=== PATIENT | male | born 1995 | race Two or more races ===

== ENCOUNTER 2018-11-14 21:25 | Emergency (ER) | payer SELFPAY ==
[~2018-11-14] VITALS: Ht 175.3 cm; Wt 95.5 kg
[2018-11-14 21:35] VITALS: BP 133/96
== END 2018-11-15 | disposition left against medical advice (07) ==
LOC: EMS 21:26
DX: R06.02 Shortness of breath (principal); Z53.21 Procedure and treatment not carried out due to patient leaving prior to being seen by health care provider

== ENCOUNTER 2019-02-24 02:38 | Emergency (ER) | payer MEDICAID ==
[~2019-02-24] VITALS: Ht 177.8 cm; Wt 109.1 kg
[2019-02-24 06:28] LABS: BASOPHILS % (AUTO) 0.5 % (0.0-2.0); EOSINOPHILS % (AUTO) 0.9 % (1.0-6.0); HEMATOCRIT 38.9 % (41-53); HEMOGLOBIN 12.2 g/dL (13.5-17.5); LYMPHOCYTES % (AUTO) 17.1 % (22.0-44.0); MEAN CORPUSCULAR HEMOGLOBIN 19.3 pg (26.0-34.0); MEAN CORPUSCULAR HGB CONC 31.4 G/dL (31.0-37.0); MEAN CORPUSCULAR VOLUME 61 fL (80-100); MONOCYTES # (AUTO) 0.9 K/uL (0.1-1.0); NEUTROPHILS # (AUTO) 8.5 K/uL (1.8-7.7); NEUTROPHILS % (AUTO) 73.5 % (40.0-70.0); PLATELET COUNT (AUTO) 216 K/uL (150-450); RED BLOOD CELL COUNT(AUTO) 6.33 MIL/uL (4.50-5.90); RED CELL DISTRIBUTION WIDTH 16.5 % (11.5-14.5)
[2019-02-24 06:46] LABS: ANION GAP 10 mmol/L (8-16); CALCIUM, TOTAL 8.7 mg/dL (8.8-10.5); CARBON DIOXIDE 25 mmol/L (22-29); CHLORIDE 105 mmol/L (98-107); GLOMERULAR FILTR. RATE CALC > 60 mL/min (>60); GLUCOSE,RANDOM 105 mg/dL (70-110); POTASSIUM 4.1 mmol/L (3.5-5.1); SODIUM SERUM 140 mmol/L (136-145); UREA NITROGEN, BLOOD 17 mg/dL (7-18)
[2019-02-24 06:51] LABS: ALANINE AMINOTRANSFERASE 36 U/L (12-78); ALBUMIN 3.6 g/dL (3.4-5.0); ALKALINE PHOSPHATASE 63 U/L (46-116); ASPARTATE AMINOTRANSFERASE 16 U/L (15-37); BILIRUBIN,TOTAL 1.1 mg/dL (0.1-1.0); TOTAL PROTEIN, SERUM 7.5 g/dL (6.4-8.2)
[2019-02-24 07:15] LABS: AMPHET/METH SCREEN,URINE NEGATIVE (NEGATIVE); BARBITURATE SCREEN, URINE NEGATIVE (NEGATIVE); BENZODIAZEPINES SCREEN,URINE NEGATIVE (NEGATIVE); CANNABINOID SCREEN,URINE NEGATIVE (NEGATIVE); COCAINE SCREEN,URINE NEGATIVE (NEGATIVE); METHADONE SCREEN, URINE NEGATIVE (NEGATIVE); OPIATE SCREEN,URINE NEGATIVE (NEGATIVE)
[2019-02-24 07:16] LABS: PHENCYCLIDINE SCREEN,URINE NEGATIVE (NEGATIVE)
[2019-02-24] MEDS ORDERED: OLANZapine 5 MG TABLET PO ONE (08:45)
[2019-02-24 09:41] VITALS: BP 126/76
== END 2019-02-24 10:50 | disposition home or self-care (01) ==
LOC: EMS 02:40
DX: F20.0 Paranoid schizophrenia (principal)
CPT/HCPCS: 36415; 80053; 80307; 85025; 99284; G0480

== ENCOUNTER 2019-03-03 20:55 | Emergency (ER) | payer SELFPAY ==
[~2019-03-03] VITALS: Ht 177.8 cm; Wt 109.1 kg
[2019-03-03] MEDS ORDERED: OLAN10TA3 PO (21:04)
[2019-03-03 22:46] LABS: BASOPHILS % (AUTO) 0.7 % (0.0-2.0); EOSINOPHILS % (AUTO) 0.7 % (1.0-6.0); HEMATOCRIT 40.5 % (41-53); HEMOGLOBIN 12.9 g/dL (13.5-17.5); LYMPHOCYTES # (AUTO) 3.2 K/uL (1.0-4.8); LYMPHOCYTES % (AUTO) 28.2 % (22.0-44.0); MEAN CORPUSCULAR HEMOGLOBIN 19.4 pg (26.0-34.0); MEAN CORPUSCULAR HGB CONC 31.8 G/dL (31.0-37.0); MEAN CORPUSCULAR VOLUME 61 fL (80-100); MONOCYTES # (AUTO) 0.9 K/uL (0.1-1.0); MONOCYTES % (AUTO) 8.1 % (2.0-9.0); NEUTROPHILS % (AUTO) 62.3 % (40.0-70.0); PLATELET COUNT (AUTO) 288 K/uL (150-450); RED BLOOD CELL COUNT(AUTO) 6.65 MIL/uL (4.50-5.90); RED CELL DISTRIBUTION WIDTH 17.3 % (11.5-14.5)
[2019-03-03 22:55] LABS: ANION GAP 6 mmol/L (8-16); CALCIUM, TOTAL 9.5 mg/dL (8.8-10.5); CARBON DIOXIDE 29 mmol/L (22-29); CHLORIDE 104 mmol/L (98-107); CREATININE 0.85 mg/dL (0.60-1.30); GLOMERULAR FILTR. RATE CALC > 60 mL/min (>60); GLUCOSE,RANDOM 92 mg/dL (70-110); POTASSIUM 4.2 mmol/L (3.5-5.1); SODIUM SERUM 139 mmol/L (136-145); UREA NITROGEN, BLOOD 13 mg/dL (7-18)
[2019-03-03 23:01] LABS: ALANINE AMINOTRANSFERASE 60 U/L (12-78); ALBUMIN 3.8 g/dL (3.4-5.0); ALKALINE PHOSPHATASE 82 U/L (46-116); ASPARTATE AMINOTRANSFERASE 25 U/L (15-37); BILIRUBIN,TOTAL 0.7 mg/dL (0.1-1.0); TOTAL PROTEIN, SERUM 8.3 g/dL (6.4-8.2)
[2019-03-03 23:37] LABS: BARBITURATE SCREEN, URINE NEGATIVE (NEGATIVE); BENZODIAZEPINES SCREEN,URINE NEGATIVE (NEGATIVE); CANNABINOID SCREEN,URINE NEGATIVE (NEGATIVE); COCAINE SCREEN,URINE NEGATIVE (NEGATIVE); METHADONE SCREEN, URINE NEGATIVE (NEGATIVE); OPIATE SCREEN,URINE NEGATIVE (NEGATIVE)
[2019-03-03 23:48] LABS: AMPHET/METH SCREEN,URINE NEGATIVE (NEGATIVE)
[2019-03-03 23:49] LABS: PHENCYCLIDINE SCREEN,URINE NEGATIVE (NEGATIVE)
[2019-03-04] MEDS ORDERED: MAALOX/LIDOCAINE/NYSTATIN SUSP 5 ML ORAL.SYG PO ONE (02:15)
[2019-03-04] MEDS ORDERED: QUEtiapine FUMARATE 25 MG TABLET PO ONE (02:15)
[2019-03-04 04:06] VITALS: BP 121/82
== END 2019-03-04 05:15 | disposition home or self-care (01) ==
LOC: EMS 20:57
DX: R44.0 Auditory hallucinations (principal); R44.1 Visual hallucinations; J02.9 Acute pharyngitis, unspecified; F32.9 Major depressive disorder, single episode, unspecified
CPT/HCPCS: 36415; 80053; 80307; 85025; 99284; G0480

== ENCOUNTER 2019-03-07 21:02 | Emergency (ER) | payer SELFPAY ==
[~2019-03-07] VITALS: Ht 177.8 cm; Wt 109.1 kg
[~2019-03-07 21:02] MED LIST: OLAN10TA3 PO
[2019-03-07] MEDS ORDERED: QUET25TA PO (21:17)
[2019-03-07] MEDS ORDERED: LORazepam 2 MG TABLET PO ONE (21:30)
[2019-03-07 23:45] VITALS: BP 110/72
== END 2019-03-07 23:57 | disposition home or self-care (01) ==
LOC: EMS 21:04
DX: F41.9 Anxiety disorder, unspecified (principal); F32.9 Major depressive disorder, single episode, unspecified; F20.9 Schizophrenia, unspecified

== ENCOUNTER 2019-03-27 18:07 | Inpatient (IN) | payer MEDICAID ==
[~2019-03-27] VITALS: Ht 177.8 cm; Wt 112.5 kg
[~2019-03-27 18:07] MED LIST changes: +QUET25TA PO
[2019-03-27] MEDS ORDERED: HALOPERIDOL 5 MG TABLET PO PRN (19:15)
[2019-03-27] MEDS ORDERED: ZOLPIDEM TARTRATE 10 MG TABLET PO PRN (19:15)
[2019-03-27 20:05] VITALS: BP 125/81
[2019-03-27] MEDS ORDERED: OLANZapine 10 MG TABLET PO SCH (21:00)
[2019-03-27] MEDS: LORazepam 2 MG TABLET PO PRN (21:02)
[2019-03-28 06:17] VITALS: BP 110/72
[2019-03-28 08:00] LABS: BASOPHILS % (AUTO) 0.7 % (0.0-2.0); EOSINOPHILS % (AUTO) 2.4 % (1.0-6.0); HEMATOCRIT 39.4 % (41-53); HEMOGLOBIN 12.4 g/dL (13.5-17.5); LYMPHOCYTES # (AUTO) 1.9 K/uL (1.0-4.8); LYMPHOCYTES % (AUTO) 29.6 % (22.0-44.0); MEAN CORPUSCULAR HEMOGLOBIN 19.4 pg (26.0-34.0); MEAN CORPUSCULAR HGB CONC 31.5 G/dL (31.0-37.0); MEAN CORPUSCULAR VOLUME 62 fL (80-100); MONOCYTES # (AUTO) 0.6 K/uL (0.1-1.0); MONOCYTES % (AUTO) 9.8 % (2.0-9.0); NEUTROPHILS # (AUTO) 3.7 K/uL (1.8-7.7); NEUTROPHILS % (AUTO) 57.5 % (40.0-70.0); PLATELET COUNT (AUTO) 233 K/uL (150-450); RED BLOOD CELL COUNT(AUTO) 6.39 MIL/uL (4.50-5.90); RED CELL DISTRIBUTION WIDTH 18.3 % (11.5-14.5)
[2019-03-28 08:26] VITALS: BP 115/65
[2019-03-28 08:42] LABS: ALANINE AMINOTRANSFERASE 52 U/L (12-78); ALKALINE PHOSPHATASE 73 U/L (46-116); ANION GAP 8 mmol/L (8-16); ASPARTATE AMINOTRANSFERASE 33 U/L (15-37); BILIRUBIN,TOTAL 0.9 mg/dL (0.1-1.0); CARBON DIOXIDE 26 mmol/L (22-29); CHLORIDE 108 mmol/L (98-107); CHOL/HDL RATIO 5.2 (4.2-7.3); CHOLESTEROL 136 mg/dL (131-200); CREATININE 0.85 mg/dL (0.60-1.30); FREE T4 (FREE THYROXINE) 1.19 ng/dL (0.76-1.46); GLOMERULAR FILTR. RATE CALC > 60 mL/min (>60); GLUCOSE,RANDOM 90 mg/dL (70-110); HDL CHOLESTEROL 26 mg/dL (40-60); LDL CHOL (CALC.) 95 mg/dL (0-130); POTASSIUM 4.4 mmol/L (3.5-5.1); SODIUM SERUM 142 mmol/L (136-145); THYROID STIMULATING HORMONE 1.71 uIU/mL (0.36-3.74); TOTAL PROTEIN, SERUM 6.9 g/dL (6.4-8.2); TRIGLYCERIDES 73 mg/dL (15-150); UREA NITROGEN, BLOOD 15 mg/dL (7-18)
[2019-03-28 16:07] VITALS: BP 120/60
[2019-03-28] MEDS ORDERED: BISACODYL 5 MG EC TABLET PO PRN (18:00)
[2019-03-28] MEDS: QUEtiapine FUMARATE 300 MG ER TABLET PO SCH (20:32)
[2019-03-28] MEDS: LORazepam 2 MG TABLET PO PRN (21:22)
[2019-03-29 06:04] VITALS: BP 112/62
[2019-03-29 08:08] VITALS: BP 116/64
[2019-03-29 16:14] VITALS: BP 116/81
[2019-03-29] MEDS: LORazepam 2 MG TABLET PO PRN (19:19)
[2019-03-29] MEDS: QUEtiapine FUMARATE 300 MG ER TABLET PO SCH (20:38)
[2019-03-30 06:17] VITALS: BP 111/60
[2019-03-30 08:06] VITALS: BP 114/67
[2019-03-30 16:00] VITALS: BP 120/60
[2019-03-30] MEDS: LORazepam 2 MG TABLET PO PRN (19:48)
[2019-03-30] MEDS: QUEtiapine FUMARATE 300 MG ER TABLET PO SCH (20:08)
[2019-03-30 23:58] VITALS: BP 100/63
[2019-03-31 00:34] VITALS: BP 100/63
[2019-03-31 08:12] VITALS: BP 105/58
[2019-03-31 16:08] VITALS: BP 145/78
[2019-03-31] MEDS: QUEtiapine FUMARATE 300 MG ER TABLET PO SCH (20:11)
[2019-03-31] MEDS: LORazepam 2 MG TABLET PO PRN (20:12)
[2019-04-01 06:15] VITALS: BP 101/60
[2019-04-01 08:09] VITALS: BP 123/65
[2019-04-01 16:12] VITALS: BP 112/63
[2019-04-01] MEDS ORDERED: QUET300T5 PO (18:04)
[2019-04-01] MEDS: QUEtiapine FUMARATE 300 MG ER TABLET PO SCH (20:05)
[2019-04-01] MEDS: LORazepam 2 MG TABLET PO PRN (20:27)
[2019-04-02 01:30] VITALS: BP 100/68
== END 2019-04-02 07:10 | disposition home or self-care (01) | DRG 750 ==
LOC: B2S 19:16
PROVIDERS: ADMIT Psychiatry & Neurology Psychiatry; ATTEND Psychiatry & Neurology Psychiatry
DX: F25.0 Schizoaffective disorder, bipolar type (principal); R45.851 Suicidal ideations; F29 Unspecified psychosis not due to a substance or known physiological condition; R45.87 Impulsiveness; D64.9 Anemia, unspecified; F41.9 Anxiety disorder, unspecified; K59.00 Constipation, unspecified; Z59.0 Homelessness
CPT/HCPCS: 83036; 84439; 84443

== ENCOUNTER 2019-05-01 11:54 | Inpatient (IN) | payer MEDICAID ==
[~2019-05-01] VITALS: Ht 182.9 cm; Wt 118.3 kg
[2019-05-01 10:52] VITALS: BP 126/65
[2019-05-01 11:15] VITALS: BP 126/65
[~2019-05-01 11:54] MED LIST changes: +LORazepam 2 MG TABLET PO PRN; -OLAN10TA3 PO; +OLAN5TAB2 PO; +OLANZapine 5 MG RAPDIS TABLET PO PRN; -QUET25TA PO; +ZOLPIDEM TARTRATE 10 MG TABLET PO PRN
[2019-05-01] MEDS ORDERED: ZOLPIDEM TARTRATE 10 MG TABLET PO PRN (12:00)
[2019-05-01 12:39] VITALS: BP 126/68
[2019-05-01] MEDS ORDERED: POTASSIUM CHLORIDE 20 MEQ ER TABLET PO ONE (13:00)
[2019-05-01 16:00] VITALS: BP 126/66
[2019-05-01] MEDS: LORazepam 2 MG TABLET PO PRN (20:17)
[2019-05-01] MEDS: OLANZapine 5 MG RAPDIS TABLET PO PRN (20:18)
[2019-05-02 06:48] VITALS: BP 129/86
[2019-05-02 08:04] VITALS: BP 121/72
[2019-05-02 08:19] LABS: BASOPHILS % (AUTO) 0.8 % (0.0-2.0); EOSINOPHILS % (AUTO) 1.9 % (1.0-6.0); HEMATOCRIT 42.6 % (41-53); HEMOGLOBIN 13.3 g/dL (13.5-17.5); LYMPHOCYTES # (AUTO) 2.4 K/uL (1.0-4.8); LYMPHOCYTES % (AUTO) 39.4 % (22.0-44.0); MEAN CORPUSCULAR HEMOGLOBIN 19.9 pg (26.0-34.0); MEAN CORPUSCULAR HGB CONC 31.3 G/dL (31.0-37.0); MEAN CORPUSCULAR VOLUME 64 fL (80-100); MONOCYTES # (AUTO) 0.6 K/uL (0.1-1.0); MONOCYTES % (AUTO) 10.5 % (2.0-9.0); NEUTROPHILS # (AUTO) 2.9 K/uL (1.8-7.7); NEUTROPHILS % (AUTO) 47.4 % (40.0-70.0); PLATELET COUNT (AUTO) 203 K/uL (150-450); RED BLOOD CELL COUNT(AUTO) 6.69 MIL/uL (4.50-5.90); RED CELL DISTRIBUTION WIDTH 17.5 % (11.5-14.5)
[2019-05-02 08:51] LABS: ALANINE AMINOTRANSFERASE 45 U/L (12-78); ALBUMIN 3.5 g/dL (3.4-5.0); ALKALINE PHOSPHATASE 69 U/L (46-116); ANION GAP 10 mmol/L (8-16); ASPARTATE AMINOTRANSFERASE 20 U/L (15-37); BILIRUBIN,TOTAL 0.9 mg/dL (0.1-1.0); CALCIUM, TOTAL 8.6 mg/dL (8.8-10.5); CARBON DIOXIDE 25 mmol/L (22-29); CHLORIDE 106 mmol/L (98-107); CHOL/HDL RATIO 5.2 (4.2-7.3); CHOLESTEROL 146 mg/dL (131-200); CREATININE 0.81 mg/dL (0.60-1.30); GLOMERULAR FILTR. RATE CALC > 60 mL/min (>60); GLUCOSE,RANDOM 93 mg/dL (70-110); HDL CHOLESTEROL 28 mg/dL (40-60); LDL CHOL (CALC.) 90 mg/dL (0-130); POTASSIUM 4.5 mmol/L (3.5-5.1); SODIUM SERUM 141 mmol/L (136-145); TOTAL PROTEIN, SERUM 7.1 g/dL (6.4-8.2); TRIGLYCERIDES 139 mg/dL (15-150); UREA NITROGEN, BLOOD 15 mg/dL (7-18)
[2019-05-02] MEDS: OLANZapine 5 MG RAPDIS TABLET PO PRN (14:48)
[2019-05-02 16:47] VITALS: BP 110/60
[2019-05-02] MEDS: LORazepam 2 MG TABLET PO PRN (20:24)
[2019-05-02] MEDS: OLANZapine 10 MG TABLET PO SCH (20:24)
[2019-05-03 05:31] VITALS: BP 117/75
[2019-05-03 08:21] VITALS: BP 118/69
[2019-05-03 17:11] VITALS: BP 133/72
[2019-05-03] MEDS: LORazepam 2 MG TABLET PO PRN (18:49)
[2019-05-03] MEDS: OLANZapine 10 MG TABLET PO SCH (20:40)
[2019-05-04 08:53] VITALS: BP 140/65
[2019-05-04 16:00] VITALS: BP 120/75
[2019-05-04] MEDS ORDERED: OLAN10TA3 PO (16:06)
== END 2019-05-04 19:10 | disposition home or self-care (01) | DRG 750 ==
LOC: EDSTATUS 11:54
PROVIDERS: ADMIT Psychiatry & Neurology Psychiatry; ATTEND Psychiatry & Neurology Psychiatry
DX: F25.0 Schizoaffective disorder, bipolar type (principal); R45.851 Suicidal ideations; Z59.0 Homelessness; R45.87 Impulsiveness; F41.9 Anxiety disorder, unspecified; R41.843 Psychomotor deficit; K59.00 Constipation, unspecified; E87.6 Hypokalemia

== ENCOUNTER 2019-09-14 06:20 | Inpatient (IN) | payer MEDICAID ==
[~2019-09-14] VITALS: Ht 177.8 cm; Wt 105.7 kg
[2019-09-14] VITALS (9 sets, daily range): BP systolic 108–139; BP diastolic 60–82
[~2019-09-14 06:20] MED LIST changes: -LORazepam 2 MG TABLET PO PRN; +OLAN10TA3 PO; -OLAN5TAB2 PO; -OLANZapine 5 MG RAPDIS TABLET PO PRN; -ZOLPIDEM TARTRATE 10 MG TABLET PO PRN
[2019-09-14] MEDS ORDERED: OLAN10TA3 PO (09:34)
[2019-09-14] MEDS ORDERED: GuaiFENesin/D-METHORPHAN [SUGAR-FREE] 200-20MG/10 ML SYRUP UDCUP PO PRN (10:00)
[2019-09-14] MEDS ORDERED: LORazepam 2 MG TABLET PO PRN ×2 (10:00)
[2019-09-14] MEDS ORDERED: LOPERAMIDE HCL 2 MG CAPSULE PO PRN (10:00)
[2019-09-14] MEDS ORDERED: ZOLPIDEM TARTRATE 10 MG TABLET PO PRN (10:00)
[2019-09-14] MEDS ORDERED: HydrOXYzine PAMOATE 50 MG CAPSULE PO PRN (10:00)
[2019-09-14] MEDS ORDERED: CYANOCOBALAMIN 1,000 MCG/ML VIAL IM ONE (10:00)
[2019-09-14] MEDS ORDERED: OLANZapine 5 MG RAPDIS TABLET PO PRN (10:00)
[2019-09-14] MEDS: THIAMINE HCL 100 MG TABLET PO SCH ×2 (10:38→16:40)
[2019-09-14] MEDS ORDERED: INFLUENZA VIRUS VACCINE QVS 2019-20 (3YR+)/PF 60 MCG/0.5 ML SYRINGE IM ONE (11:00)
[2019-09-15 00:25] VITALS: BP 136/73
[2019-09-15 01:30] VITALS: BP 110/68
[2019-09-15 05:32] VITALS: BP 112/70
[2019-09-15] MEDS ORDERED: LORazepam 2 MG TABLET PO PRN (07:00)
[2019-09-15] MEDS ORDERED: ACETAMINOPHEN 325 MG TABLET PO PRN (08:00)
[2019-09-15] MEDS ORDERED: ONDANSETRON HCL 4 MG TABLET PO PRN (08:00)
[2019-09-15] MEDS ORDERED: PETROLATUM,WHITE 28 GM JELLY TP PRN (08:00)
[2019-09-15] MEDS ORDERED: MAG HYDROX/AL HYDROX/SIMETH ES 30 ML SUSPENSION UDCUP PO PRN (08:00)
[2019-09-15] MEDS ORDERED: ALBUTEROL SULFATE HFA 90 MCG/PUFF 8 GM INHALER IH PRN (08:00)
[2019-09-15] MEDS ORDERED: LOPERAMIDE HCL 2 MG CAPSULE PO PRN (08:00)
[2019-09-15] MEDS ORDERED: MAGNESIUM HYDROXIDE SUSPENSION 30 ML UDCUP PO PRN (08:00)
[2019-09-15] MEDS ORDERED: IBUPROFEN 600 MG TABLET PO PRN (08:00)
[2019-09-15] MEDS ORDERED: CloNIDine HCL 0.1 MG TABLET PO PRN (08:00)
[2019-09-15] MEDS ORDERED: BACITRACIN 28.4 GM OINTMENT TP PRN (08:00)
[2019-09-15] MEDS ORDERED: BENZOCAINE/MENTHOL LOZENGE MM PRN (08:00)
[2019-09-15] MEDS: MULTIVITAMINS WITH MINERALS, THERAPEUTIC TABLET PO SCH (08:40)
[2019-09-15] MEDS: FOLIC ACID 1 MG TABLET PO SCH (08:40)
[2019-09-15] MEDS: THIAMINE HCL 100 MG TABLET PO SCH ×2 (08:40→16:10)
[2019-09-15] MEDS: LORazepam 2 MG TABLET PO SCH ×4 (08:40→21:18)
[2019-09-15 09:20] VITALS: BP 114/71
[2019-09-15 13:20] VITALS: BP 116/73
[2019-09-15 16:07] VITALS: BP 110/60
[2019-09-15] MEDS: OLANZapine 10 MG TABLET PO SCH (21:16)
[2019-09-15] MEDS ORDERED: SERT50TA12 PO (21:58)
[2019-09-16 01:07] VITALS: BP 124/78
[2019-09-16 01:16] VITALS: BP 124/78
[2019-09-16 07:41] LABS: BASOPHILS % (AUTO) 0.5 % (0.0-2.0); EOSINOPHILS % (AUTO) 1.1 % (1.0-6.0); HEMATOCRIT 42.1 % (41-53); HEMOGLOBIN 13.4 g/dL (13.5-17.5); LYMPHOCYTES % (AUTO) 38.3 % (22.0-44.0); MEAN CORPUSCULAR HEMOGLOBIN 19.8 pg (26.0-34.0); MEAN CORPUSCULAR HGB CONC 31.8 G/dL (31.0-37.0); MEAN CORPUSCULAR VOLUME 62 fL (80-100); MONOCYTES # (AUTO) 0.7 K/uL (0.1-1.0); MONOCYTES % (AUTO) 9.4 % (2.0-9.0); NEUTROPHILS % (AUTO) 50.7 % (40.0-70.0); PLATELET COUNT (AUTO) 237 K/uL (150-450); RED BLOOD CELL COUNT(AUTO) 6.76 MIL/uL (4.50-5.90); RED CELL DISTRIBUTION WIDTH 16.6 % (11.5-14.5)
[2019-09-16 07:56] LABS: ALANINE AMINOTRANSFERASE 42 U/L (12-78); ALBUMIN 3.7 g/dL (3.4-5.0); ALKALINE PHOSPHATASE 68 U/L (46-116); ANION GAP 8 mmol/L (8-16); ASPARTATE AMINOTRANSFERASE 15 U/L (15-37); BILIRUBIN,TOTAL 0.7 mg/dL (0.1-1.0); CALCIUM, TOTAL 8.5 mg/dL (8.8-10.5); CARBON DIOXIDE 26 mmol/L (22-29); CHLORIDE 105 mmol/L (98-107); FREE T4 (FREE THYROXINE) 0.99 ng/dL (0.76-1.46); GLOMERULAR FILTR. RATE CALC > 60 mL/min (>60); GLUCOSE,RANDOM 91 mg/dL (70-110); SODIUM SERUM 139 mmol/L (136-145); THYROID STIMULATING HORMONE 3.04 uIU/mL (0.36-3.74); TOTAL PROTEIN, SERUM 7.3 g/dL (6.4-8.2)
[2019-09-16 08:13] LABS: UREA NITROGEN, BLOOD 11 mg/dL (7-18)
[2019-09-16 08:29] VITALS: BP 115/61
[2019-09-16] MEDS: THIAMINE HCL 100 MG TABLET PO SCH ×2 (09:04→17:20)
[2019-09-16] MEDS: SERTRALINE HCL 50 MG TABLET PO SCH (09:04)
[2019-09-16] MEDS: LORazepam 2 MG TABLET PO SCH ×4 (09:04→20:33)
[2019-09-16] MEDS: OMEPRAZOLE 20 MG CAPSULE PO SCH (09:04)
[2019-09-16] MEDS: FOLIC ACID 1 MG TABLET PO SCH (09:04)
[2019-09-16] MEDS: MULTIVITAMINS WITH MINERALS, THERAPEUTIC TABLET PO SCH (09:04)
[2019-09-16] MEDS: DOCUSATE SODIUM 100 MG CAPSULE PO SCH (09:04)
[2019-09-16 09:36] VITALS: BP 115/61
[2019-09-16 16:09] VITALS: BP 114/61
[2019-09-16] MEDS: OLANZapine 10 MG TABLET PO SCH (20:33)
[2019-09-17 00:14] VITALS: BP 105/69
[2019-09-17] MEDS ORDERED: LORazepam 1 MG TABLET PO PRN (07:00)
[2019-09-17 08:00] VITALS: BP 107/76
[2019-09-17 08:22] VITALS: BP 107/74
[2019-09-17] MEDS: FOLIC ACID 1 MG TABLET PO SCH (08:37)
[2019-09-17] MEDS: THIAMINE HCL 100 MG TABLET PO SCH ×2 (08:37→16:45)
[2019-09-17] MEDS: MULTIVITAMINS WITH MINERALS, THERAPEUTIC TABLET PO SCH (08:37)
[2019-09-17] MEDS: DOCUSATE SODIUM 100 MG CAPSULE PO SCH (08:37)
[2019-09-17] MEDS: OMEPRAZOLE 20 MG CAPSULE PO SCH (08:37)
[2019-09-17] MEDS: LORazepam 1 MG TABLET PO SCH ×4 (08:37→21:13)
[2019-09-17] MEDS: SERTRALINE HCL 50 MG TABLET PO SCH (08:37)
[2019-09-17 16:08] VITALS: BP 129/67
[2019-09-17 16:36] VITALS: BP 129/67
[2019-09-17] MEDS: OLANZapine 10 MG TABLET PO SCH (20:45)
[2019-09-18] VITALS: BP 110/65
[2019-09-18 00:54] VITALS: BP 103/62
[2019-09-18] MEDS ORDERED: LORazepam 1 MG TABLET PO PRN (07:00)
[2019-09-18] MEDS: THIAMINE HCL 100 MG TABLET PO SCH ×2 (09:28→16:09)
[2019-09-18] MEDS: FOLIC ACID 1 MG TABLET PO SCH (09:28)
[2019-09-18] MEDS: DOCUSATE SODIUM 100 MG CAPSULE PO SCH (09:28)
[2019-09-18] MEDS: OMEPRAZOLE 20 MG CAPSULE PO SCH (09:28)
[2019-09-18] MEDS: SERTRALINE HCL 50 MG TABLET PO SCH (09:28)
[2019-09-18] MEDS: MULTIVITAMINS WITH MINERALS, THERAPEUTIC TABLET PO SCH (09:47)
[2019-09-18 16:00] VITALS: BP 124/78
[2019-09-18 16:07] VITALS: BP 124/78
[2019-09-18] MEDS: OLANZapine 10 MG TABLET PO SCH (20:16)
[2019-09-19] VITALS: BP 111/62
[2019-09-19 00:25] VITALS: BP 111/62
[2019-09-19 08:14] VITALS: BP 106/69
[2019-09-19] MEDS: THIAMINE HCL 100 MG TABLET PO SCH ×2 (08:14→16:07)
[2019-09-19] MEDS: FOLIC ACID 1 MG TABLET PO SCH (08:14)
[2019-09-19] MEDS: OMEPRAZOLE 20 MG CAPSULE PO SCH (08:14)
[2019-09-19] MEDS: SERTRALINE HCL 50 MG TABLET PO SCH (08:14)
[2019-09-19] MEDS: DOCUSATE SODIUM 100 MG CAPSULE PO SCH (08:15)
[2019-09-19] MEDS: MULTIVITAMINS WITH MINERALS, THERAPEUTIC TABLET PO SCH (08:15)
[2019-09-19 16:26] VITALS: BP 114/66
[2019-09-19] MEDS: OLANZapine 10 MG TABLET PO SCH (20:06)
[2019-09-20] MEDS ORDERED: DOCU-275 PO (04:24)
[2019-09-20] MEDS ORDERED: OMEP20 PO (04:25)
[2019-09-20] MEDS ORDERED: FOLI1 PO (04:25)
[2019-09-20] MEDS ORDERED: MULT-1239 PO (04:25)
[2019-09-20] MEDS ORDERED: THIA100T67 PO (04:26)
[2019-09-20 07:16] VITALS: BP 102/66
[2019-09-20] MEDS ORDERED: MULTIVITAMINS WITH MINERALS, THERAPEUTIC TABLET PO SCH ×2 (09:00)
[2019-09-20] MEDS ORDERED: THIAMINE HCL 100 MG TABLET PO SCH ×2 (09:00)
[2019-09-20] MEDS ORDERED: OMEPRAZOLE 20 MG CAPSULE PO SCH ×2 (09:00)
[2019-09-20] MEDS ORDERED: FOLIC ACID 1 MG TABLET PO SCH ×2 (09:00)
[2019-09-20] MEDS ORDERED: SERTRALINE HCL 100 MG TABLET PO SCH ×2 (09:00)
[2019-09-20] MEDS ORDERED: DOCUSATE SODIUM 100 MG CAPSULE PO SCH ×2 (09:00)
[2019-09-20] MEDS ORDERED: OLANZapine 10 MG TABLET PO SCH (21:00)
== END 2019-09-20 07:05 | disposition home or self-care (01) | DRG 750 ==
LOC: B2S 09:53
PROVIDERS: ADMIT Psychiatry & Neurology Psychiatry; ATTEND Psychiatry & Neurology Psychiatry
DX: F25.1 Schizoaffective disorder, depressive type (principal); Z59.0 Homelessness; E87.6 Hypokalemia; K59.00 Constipation, unspecified; F41.9 Anxiety disorder, unspecified; F10.14 Alcohol abuse with alcohol-induced mood disorder; G47.00 Insomnia, unspecified; Z72.0 Tobacco use
CPT/HCPCS: 84439; 84443; J3420; Q0162